=== PATIENT | female | born 1960 | race Caucasian/White ===

== ENCOUNTER 2021-02-18 08:05 | Emergency (ER) | payer BC ==
--- NOTE | 2021-02-18 08:57 | EDM.PDOC ---
ED HPI GENERAL MEDICAL PROBLEM - General Chief Complaint: Genitourinary Problem Stated Complaint: UTI Time Seen by Provider: 02/18/21 08:35 Source of Information: Reports: Patient History Limitations: Reports: No Limitations - History of Present Illness INITIAL COMMENTS - FREE TEXT/NARRATIVE: 60 YO WF PRESENTS TO ER COMPLAINING OF RIGHT SIDED FLANK PAIN WITH DYSURIA AND URINARY FREQUENCY WHICH BEGAN 2 DAYS AGO. PT REPORTS SHE HAS BEEN DRINKING A LOT OF CRANBERRY JUICE DUE TO THE FACT SHE THOUGHT SHE WAS DEVELOPING A UTI. PT DENIES FEVER/CHILLS, NO NAUSEA/VOMITING, RIGHT FLANK PAIN IS MILD IN SEVERITY. PT DENIES ABDOMINAL PAIN. Onset Date: 02/16/21 Duration: Day(s): (2) Location: Reports: Back Quality: Reports: Ache Severity: Mild Improves with: Reports: None Worsens with: Reports: None Associated Symptoms: Reports: No Other Symptoms. Denies: Nausea/Vomiting Right Flank Pain Score (Numeric/FACES): 3 Perineal Area Pain Score (Numeric/FACES): 2 - Related Data Allergies Allergy/AdvReac Type Severity Reaction Status Date / Time ketorolac [From Toradol] Allergy Nausea and Verified 02/18/21 08:25 Vomiting morphine Allergy Nausea and Verified 02/18/21 08:25 Vomiting Sulfa (Sulfonamide Allergy Hives Verified 02/18/21 08:25 Antibiotics) Home Meds: Home Meds Ciprofloxacin HCl [Cipro] 500 mg PO BID #14 tablet 02/18/21 [Rx] Dapagliflozin/Metformin HCl [Xigduo Xr 5 mg-1,000 mg Tablet] 1 tab PO DAILY 02/18/21 [History] FLUoxetine [PROzac] 40 mg PO DAILY 02/18/21 [History] Fenofibrate Nanocrystallized [Fenofibrate] 145 mg PO DAILY 02/18/21 [History] Fluticasone Propionate [Flonase] 1 sprays NASBOTH ASDIRECTED PRN 02/18/21 [History] Gabapentin [Neurontin] 100 mg PO TID 02/18/21 [History] Lansoprazole [Prevacid] 30 mg PO BID 02/18/21 [History] Non-Formulary Medication [NF Drug] 1 tab PO DAILY 02/18/21 [History] Nortriptyline 50 mg PO DAILY 02/18/21 [History] Ondansetron [Zofran ODT] 4 mg BUCCAL DAILY PRN 02/18/21 [History] Phenazopyridine HCl [Pyridium] 200 mg PO TID PRN #3 tablet 02/18/21 [Rx] Pioglitazone [Actos] 15 mg PO DAILY 02/18/21 [History] Propranolol [Inderal LA] 80 mg PO DAILY 02/18/21 [History] Rosuvastatin [Crestor] 5 mg PO DAILY 02/18/21 [History] buPROPion [Wellbutrin] 75 mg PO DAILY 02/18/21 [History] Past Medical History HEENT History: Reports: Impaired Vision, Sinusitis, Other (See Below) Other HEENT History: barrets esophagitis Cardiovascular History: Reports: High Cholesterol Respiratory History: Reports: Other (See Below) Other Respiratory History: covid Gastrointestinal History: Reports: Fatty Liver, Pancreatitis, Other (See Below) Other Gastrointestinal History: perforated diverticuli Genitourinary History: Reports: Renal Calculus, UTI, Recurrent Musculoskeletal History: Reports: Arthritis Neurological History: Reports: Migraines, Neuropathy, Diabetic Psychiatric History: Reports: Depression, Other (See Below) Other Psychiatric History: seasonal affective disorder Endocrine/Metabolic History: Reports: Diabetes, Type II Dermatologic History: Reports: None - Infectious Disease History Infectious Disease History: Reports: Chicken Pox, Influenza, Novel Coronavirus - Past Surgical History Head Surgeries/Procedures: Reports: None HEENT Surgical History: Reports: Oral Surgery Cardiovascular Surgical History: Reports: None Respiratory Surgical History: Reports: None GI Surgical History: Reports: Appendectomy, Cholecystectomy, Colonoscopy Female Surgical History: Reports: None Endocrine Surgical History: Reports: None Neurological Surgical History: Reports: None Musculoskeletal Surgical History: Reports: None Dermatological Surgical History: Reports: None Social & Family History - Family History Family Medical History: No Pertinent Family History - Tobacco Use Tobacco Use Status *Q: Former Tobacco User Used Tobacco, but Quit: Yes Month/Year Tobacco Last Used: 2001 - Caffeine Use Caffeine Use: Reports: Coffee, Soda, Tea - Recreational Drug Use Recreational Drug Use: Yes Drug Use in Last 12 Months: No Recreational Drug Type: Reports: Marijuana/Hashish Other Recreational Drug Type: Nothing since age 17 ED [facility] - Review of Systems Review Of Systems: See Below Constitutional: Reports: No Symptoms HEENT: Reports: No Symptoms Respiratory: Reports: No Symptoms Cardiovascular: Reports: No Symptoms Endocrine: Reports: No Symptoms GI/Abdominal: Reports: No Symptoms : Reports: Dysuria, Flank Pain, Frequency, Urgency Musculoskeletal: Reports: No Symptoms Skin: Reports: No Symptoms Neurological: Reports: No Symptoms Psychiatric: Reports: No Symptoms Hematologic/Lymphatic: Reports: No Symptoms Immunologic: Reports: No Symptoms ED EXAM, RENAL/ - Physical Exam Exam: See Below Exam Limited By: No Limitations General Appearance: Alert, WD/WN, No Apparent Distress Head: Atraumatic, Normocephalic Neck: Normal Inspection, Supple, Non-Tender, Full Range of Motion Respiratory/Chest: No Respiratory Distress, Lungs Clear, Normal Breath Sounds, No Accessory Muscle Use, Chest Non-Tender Cardiovascular: Normal Peripheral Pulses, Regular Rate, Rhythm, No Edema, No Gallop, No JVD, No Murmur, No Rub GI/Abdominal: Normal Bowel Sounds, Soft, Non-Tender, No Organomegaly, No Distention, No Abnormal Bruit, No Mass Back Exam: Normal Inspection, Full Range of Motion, CVA Tenderness (R) Extremities: Normal Inspection, Normal Range of Motion, Non-Tender, Normal Capillary Refill, No Pedal Edema Neurological: Alert, Oriented, CN II-XII Intact, Normal Cognition, Normal Gait, Normal Reflexes, No Motor/Sensory Deficits Psychiatric: Normal Affect, Normal Mood Skin Exam: Warm, Dry, Intact, Normal Color, No Rash Lymphatic: No Adenopathy Course - Vital Signs Last Recorded V/S: Last Vital Signs Temp 96.3 F L 02/18/21 08:20 Pulse 82 02/18/21 08:20 Resp 16 02/18/21 08:20 BP 129/69 02/18/21 08:20 Pulse Ox 98 02/18/21 08:20 - Orders/Labs/Meds Orders: Active Orders 24 hr Category Date Time Status Accu Check [Blood Glucose Check, Bedside] [RC] ONETIME Care 02/18/21 08:49 Ordered Labs: Laboratory Tests 02/18/21 Range/Units 08:08 Specimen Type Urincc Urine Color Yellow (YELLOW) Urine Appearance Clear (CLEAR) Urine pH 5.5 (5.0-9.0) Ur Specific [place] <= 1.005 (1.005-1.030) Urine Protein Negative (NEGATIVE) mg/dL Urine Glucose (UA) 100 H (NEGATIVE) mg/dL Urine Ketones Negative (NEGATIVE) mg/dL Urine Occult Blood Small H (NEGATIVE) Urine Nitrite Negative (NEGATIVE) Urine Bilirubin Negative (NEGATIVE) Urine Urobilinogen 0.2 (0.2-1.0) E.U./dL Ur Leukocyte Esterase Trace H (NEGATIVE) Urine RBC 0-5 (0-5) /HPF Urine WBC 0-5 (0-5) /HPF Ur Epithelial Cells Occasional /LPF Urine Bacteria Rare (NONE TO FEW) /HPF Departure - Departure Time of Disposition: 09:03 Disposition: Home, Self-Care 01 Condition: Good Clinical Impression: UTI, Urinary tract infectious disease - Discharge Information Prescriptions: Ciprofloxacin HCl [Cipro] 500 mg PO BID #14 tablet Phenazopyridine HCl [Pyridium] 200 mg PO TID PRN #3 tablet PRN Reason: Pain Instructions: Urinary Tract Infection, Adult, [id number] Referrals: Fnanie Mock PA-C [Primary Care Provider] - Additional Instructions: 1. DISCHARGE HOME 2. CIPRO 500MG TWICE/DAY X 7 DAYS 3. PYRIDIUM 200MG 3X/DAY NEEDED FOR PAIN 4. FOLLOW UP WITH PCP IN 2-3 DAYS IF NO IMPROVEMENT FOR URINARY CULTURE RESULTS 5. RETURN TO ER FOR WORSENING SYMPTOMS Sepsis Event Note (ED) - Evaluation Sepsis Screening Result: No Definite Risk - Focused Exam Vital Signs: Vital Signs Temp Pulse Resp BP Pulse Ox 02/18/21 08:20 96.3 F L 82 16 129/69 98 - My Orders Last 24 Hours: My Active Orders 02/18/21 08:49 Accu Check [Blood Glucose Check, Bedside] [RC] ONETIME - Assessment/Plan Last 24 Hours: My Active Orders 02/18/21 08:49 Accu Check [Blood Glucose Check, Bedside] [RC] ONETIME Assessment:: 1. URINARY TRACT INFECTION Plan: 1. DISCHARGE HOME 2. CIPRO 500MG TWICE/DAY X 7 DAYS 3. PYRIDIUM 200MG 3X/DAY NEEDED FOR PAIN 4. FOLLOW UP WITH PCP IN 2-3 DAYS IF NO IMPROVEMENT FOR URINARY CULTURE RESULTS 5. RETURN TO ER FOR WORSENING SYMPTOMS
[2021-02-18] MEDS ORDERED: Ciprofloxacin 500 MG Tab PO ONE (08:58)
[2021-02-18] MEDS ORDERED: Phenazopyridine 100 MG Tab PO SCH (09:00)
== END 2021-02-18 09:12 | disposition home or self-care (01) ==
LOC: KA.ED 08:05
DX: N39.0 Urinary tract infection, site not specified (principal); E78.00 Pure hypercholesterolemia, unspecified; E11.40 Type 2 diabetes mellitus with diabetic neuropathy, unspecified; Z87.891 Personal history of nicotine dependence; Z86.16 Personal history of COVID-19; Z88.5 Allergy status to narcotic agent; Z88.2 Allergy status to sulfonamides; Z79.899 Other long term (current) drug therapy
CPT/HCPCS: 81001; 82947; 87086; 87088; 87186; 99283; 99284; A9270-GY